=== PATIENT | male | born 1940 | race Caucasian/White ===

== ENCOUNTER → 2017-02-15 | Outpatient (CLI) | payer BC ==
[~2017-02-15] MED LIST: AMLO10CA2 PO; DUTACAP PO; MULT-506 PO; NXM/40 PO; PARO1TAB27 PO; SIMV20TA2 PO
[2017-02-15 11:14] LABS: ESTIMATED AVERAGE GLUCOSE 128 mg/dl; HA1C FLAG Normal (Normal)
[2017-02-15 11:16] LABS: ALT/SGPT 34 U/L (12-78); BLOOD UREA NITROGEN 22 mg/dl (7-18); BUN/CREATININE RATIO 20.2 (10-20); CARBON DIOXIDE 26 mmol/L (21-32); CHLORIDE 104 mmol/L (98-107); CHOLESTEROL 190 mg/dl (0-200); GLUCOSE 114 mg/dl (70-99); POTASSIUM 4.1 mmol/L (3.5-5.1); SODIUM 140 mmol/L (136-145); TRIGLYCERIDES 167 mg/dl (0-150); VERY LOW DENSITY LIPOPROT CALC 33 mg/dl
[2017-02-15 11:22] LABS: ALKALINE PHOSPHATASE 92 U/L (45-117); AST/SGOT 17 U/L (15-37); HDL CHOLESTEROL 47 mg/dl; LDL CHOLESTEROL CALCULATED 110 mg/dl; PROSTATE SPECIFIC ANTIGEN 0.591 ng/ml (0.000-4.000)
--- NOTE | 2017-02-19 14:30 | CODING QUERY MEDICAL NECESSITY ---
SUPPORTING DIAGNOSIS NEEDED A supporting diagnosis is required for the test/procedure performed on this patient in order for us to be reimbursed by the patient's insurance. Please provide a supporting diagnosis for the following test/procedure listed below next to the test name along with your signature. *If there is no additional diagnosis for this patient that would support the following test/procedure please document that below next to the test/procedure. Test(s)/Procedure(s) that require a supporting diagnosis: * PSA DIAGNOSIS: * DOS: 02/15/17 Provider Signature: Date: Thank you Micheline Gardner [facility] [employer] Once completed, please kindly fax back to [phone] For questions please call [phone]
== END | disposition home or self-care (01) ==
LOC: C.LABBC 07:55
PROVIDERS: ATTEND Internal Medicine
DX: E78.5 Hyperlipidemia, unspecified (principal); R73.01 Impaired fasting glucose; N40.1 Benign prostatic hyperplasia with lower urinary tract symptoms

== ENCOUNTER → 2018-01-07 | Outpatient (CLI) | payer BC ==
--- NOTE | 2018-01-07 08:55 | DIAGNOSTIC IMAGING REPORT ---
ABDOMEN FOR HERNIA CLINICAL HISTORY: INGUINAL HERNIA hernia TECHNIQUE: Ultrasound COMPARISON STUDY: None FINDINGS: Right inguinal fat-containing hernia. This is reducible. No evidence of bowel containment. IMPRESSION: Reducible fat containing right inguinal hernia. The above report was generated using voice recognition software. It may contain grammatical, syntax or spelling errors. Electronically signed by: Franky Armstrong M.D. 01/07/2018 8:53 AM Dictated Date/Time: 01/07/2018 8:52 AM
== END | disposition home or self-care (01) ==
LOC: C.ULTRBC 08:27
PROVIDERS: ATTEND Physician Assistant Medical
DX: K40.90 Unilateral inguinal hernia, without obstruction or gangrene, not specified as recurrent (principal)

== ENCOUNTER → 2018-02-16 | Outpatient (CLI) | payer BC ==
[~2018-02-16] MED LIST changes: -SIMV20TA2 PO
[2018-02-16 11:36] LABS: BASO % 0.2 %; BASO ABS # 0.02 K/uL (0-0.2); EOS % 1.9 %; EOS ABS # 0.16 K/uL (0-0.5); HEMATOCRIT 45.9 % (42-52); HEMOGLOBIN 15.5 g/dL (14.0-18.0); IG# 0.01 K/uL (0.00-0.02); LYMPH % 44.6 %; LYMPH ABS # 3.75 K/uL (1.2-3.4); MEAN CELL VOLUME 92.7 fL (80-100); MEAN CORPUSCULAR HEMOGLOBIN 31.3 pg (25-34); MEAN CORPUSCULAR HGB CONC 33.8 g/dl (32-36); MEAN PLATELET VOLUME 12.2 fL (7.4-10.4); MONO % 7.9 %; MONO ABS # 0.66 K/uL (0.11-0.59); NEUT % 45.3 %; PLATELET COUNT 133 K/uL (130-400); RED CELL DISTRIBUTION WIDTH CV 13.9 % (11.5-14.5); RED CELL DISTRIBUTION WIDTH SD 47.2 fL (36.4-46.3)
[2018-02-16 11:53] LABS: ALBUMIN 4.1 gm/dl (3.4-5.0); ALT/SGPT 51 U/L (12-78); BLOOD UREA NITROGEN 25 mg/dl (7-18); CALCIUM 8.8 mg/dl (8.5-10.1); CARBON DIOXIDE 26 mmol/L (21-32); CHOLESTEROL 241 mg/dl (0-200); CREATININE 1.24 mg/dl (0.60-1.40); GLUCOSE 110 mg/dl (70-99); POTASSIUM 4.3 mmol/L (3.5-5.1); SODIUM 137 mmol/L (136-145)
[2018-02-16 12:04] LABS: ALKALINE PHOSPHATASE 80 U/L (45-117); AST/SGOT 31 U/L (15-37); LDL CHOLESTEROL CALCULATED 153 mg/dl
[2018-02-16 12:20] LABS: HEMOGLOBIN A1C 6.1 % (4.5-5.6)
== END | disposition home or self-care (01) ==
LOC: C.LABBC 07:34
PROVIDERS: ATTEND Internal Medicine
DX: F40.01 Agoraphobia with panic disorder (principal); Z12.5 Encounter for screening for malignant neoplasm of prostate

== ENCOUNTER → 2018-03-01 | Day surgery (SDC) | payer BC ==
[2018-02-01 08:03] VITALS: Ht 170.2 cm; Wt 103.6 kg
[~2018-03-01] VITALS: Ht 170.2 cm; Wt 103.6 kg
[~2018-03-01] MED LIST changes: +ATROPINE SULFATE 0.1 MG/ML 5ML SYR IV PRN; +BUPIVACAINE 0.5 % 5 MG/1 ML PF 10ML VIAL ONE; +CEFAZOLIN 2000MG IV PUSH 15 ML IV SCH; +CEFAZOLIN SOD 1 GM VIAL ONE; +CEPH500C2 PO; +DEXAMETHASONE SOD INJ 4 MG/ML VIAL ONE; +EpHEDrine SULFATE INJ 50 MG/ML AMP IV PRN; +EpHEDrine SULFATE INJ 50 MG/ML AMP ONE; +FENTANYL CITRATE INJ 50 MCG/1 ML 2 ML VIAL IV PRN; +FENTANYL CITRATE INJ 50 MCG/1 ML 2 ML VIAL ONE; +GLYCOPYRROLATE INJ 0.2 MG/ML VIAL ONE; +HYDR-5688 PO; +HYDROCODONE/ACETAMIN 5/325MG TAB PO PRN; +LACTATED RINGER'S 1000ML 1,000 ML IV SCH; +LIDOCAINE HCL 2% 2 ML VIAL (20MG/ML) ONE; +MIDAZOLAM HCL 1 MG/ML 2ML VIAL ONE; +NEOSTIGMINE METHYLSULFATE 5 MG/5 ML SYR ONE; +ONDANSETRON INJ 2 MG/ML 2 ML VIAL IV PRN; +ONDANSETRON INJ 2 MG/ML 2 ML VIAL ONE; +PROPOFOL IV EMULSION 10 MG/ML 20 ML VIAL IV ONE; +SODIUM CHLORIDE 0.9% 1000ML 1,000 ML IV SCH; +SODIUM CHLORIDE 0.9% INJ 10 ML VIAL ONE
--- NOTE | 2018-03-01 13:07 | [facility] Operative Report ---
Operative Report Operative Date Mar 01, 2018. Pre-Operative Diagnosis Right Inguinal Hernia Post-Operative Diagnosis same as pre op Procedure(s) Performed Open Right Inguinal Hernia Repair Surgeon Dr Ureña Stenotypist Surgeon(s) Nedra Moreira Estimated Blood Loss 10 cc Findings very Large lipoma and indirect sac Drains None Anesthesia Type General Complication(s) none Disposition Recovery Room / PACU I attest to the content of the Intraoperative Record and any orders documented therein. Any exceptions are noted below.
--- NOTE | 2018-03-01 13:16 | Discharge Instructions-SurgCtr ---
Discharge Instructions Date of Service Mar 01, 2018. Visit Reason for Visit: Right Inguinal Hernia Discharge Discharge Diagnosis / Problem: Rt inguinal hernia Discharge Goals Goal(s): Decrease discomfort, Improve function, Improve disease control Activity Recommendations Activity Limitations: as noted below Lifting Limitations: no more than 25 pounds Exercise/Sports Limitations: until after follow-up appointment May Resume Sexual Activity: when tolerated Shower/Bathe: keep incision dry (for 2 days, then may shower over incision) Driving or Machine Use: resume 3 days after discharge Anesthesia . Post Anesthesia Instructions: If you have had General Anesthesia or IV Sedation: * Do not drive today. * Resume driving when surgeon permits. * Do not make important decisions or sign legal documents today. * Call surgeon for: 1. Temperature elevations greater than 101 degrees F. 2. Uncontrollable pain. 3. Excessive bleeding. 4. Persistent nausea and vomiting. 5. Medication intolerance (nausea, vomiting or rash). * For nausea and vomiting use only clear liquids such as: tea, soda, bouillon until nausea subsides, then gradually increase diet as tolerated. * If you have any concerns or questions, call your surgeon's office. If physician is unavailable and it is an emergency, call 911 or go to the nearest emergency room. . Instructions / Follow-Up Instructions / Follow-Up SPECIAL CARE INSTRUCTIONS: * Cover incisions and change daily for comfort/drainage. * Leave steri strips in place * avoid constipation- may use Senokot S and Milk of magnesia twice daily as directed on the package * May use ibuprofen for pain as tolerated. * Expect some swelling and bruising. Call your doctor if: * Temperature above 101 degrees * Pain not relieved by pain medicine ordered * There is increased drainage or redness from any incision * You have any unanswered questions or concerns [phone]. FOLLOW UP VISIT: If not already scheduled, please call the office for a follow-up visit. for next week- some suture removal OFFICE PHONE NUMBER: Dr. Ureña Office Diet Recommendations Home Diet: resume previous diet Procedures Procedures Performed: Open Right Inguinal Hernia Repair Pending Studies Studies pending at discharge: no Medical Emergencies . Who to Call and When: Medical Emergencies: If at any time you feel your situation is an emergency, please call 911 immediately. . Non-Emergent Contact Non-Emergency issues call your: Primary Care Provider, Surgeon . . "Provider Documentation" section prepared by Heriberto Ureña. .
--- NOTE | 2018-03-01 13:34 | OPERATIVE REPORT ---
DATE OF OPERATION: 03/01/2018 NAME OF OPERATION: Open right inguinal hernia repair. PREOPERATIVE DIAGNOSIS: Right inguinal hernia. POSTOPERATIVE DIAGNOSIS: Same with indirect sac and a very large lipoma. STAFF SURGEON: Heriberto Ureña MD RESIDENTIAL SUPPORT SPECIALIST: Alex Moreira PA-C ANESTHESIA: General anesthetic. PROCEDURE: The patient was brought in the operating room and placed on the operating table in supine position. His right lower abdomen was prepped and draped in usual fashion. Incision made parallel to the inguinal ligament, carrying dissection down identifying the external oblique fibers incising them along their length to the external ring. Cord structures were mobilized. The patient had a very large indirect hernia sac and a very large lipoma. These were dissected away and reduced. The internal ring then reinforced using a mesh plug, secured to surrounding tissue using 2-0 Ethibond suture. A large mesh patch was then placed in the floor of the canal around the cord structures secured to surrounding tissue using 2-0 Ethibond suture. The external oblique fibers were closed over the mesh around the cord structures using 2-0 Ethibond suture. The site was anesthetized using 0.5% plain Marcaine. Subcutaneous tissue reapproximated using 2-0 plain catgut suture then the skin reapproximated using 4-0 nylon suture and Steri-Strips. The patient was transferred to recovery room in stable condition. I attest to the content of the Intraoperative Record and any orders documented therein. Any exception s are noted below.
--- NOTE | 2018-03-01 14:03 | Anesthesia Progress Nt - [facility] ---
Anesthesia Post Op Note Date & Time Mar 01, 2018 at 14:03 Vital Signs Pain Intensity: 0 Vital Signs Past 12 Hours Date Time Temp Pulse Resp B/P (MAP) Pulse Ox O2 Delivery O2 Flow Rate FiO2 03/01/18 13:50 36.4 74 20 128/77 (94) 91 Room Air 03/01/18 13:41 36.3 93 Room Air 03/01/18 13:40 148/89 03/01/18 13:38 78 11 94 03/01/18 13:38 79 11 03/01/18 13:36 133/89 03/01/18 13:33 83 18 94 03/01/18 13:33 83 18 03/01/18 13:31 137/83 03/01/18 13:28 83 16 03/01/18 13:28 83 16 94 03/01/18 13:27 82 16 94 03/01/18 13:27 82 16 03/01/18 13:26 128/85 03/01/18 13:22 86 19 94 03/01/18 13:22 86 19 03/01/18 13:21 145/88 03/01/18 13:19 84 20 03/01/18 13:19 84 20 93 03/01/18 13:16 151/89 03/01/18 13:15 155/91 03/01/18 13:14 36.9 84 18 153/91 93 Mask 10 03/01/18 11:09 192/114 (140) 03/01/18 10:54 36.9 77 18 211/127 (155) 95 Room Air Notes Mental Status: alert / awake / arousable, participated in evaluation Pt Amnestic to Procedure: Yes Nausea / Vomiting: adequately controlled Pain: adequately controlled Airway Patency, RR, SpO2: stable & adequate BP & HR: stable & adequate Hydration State: stable & adequate Anesthetic Complications: no major complications apparent
[2018-03-01 14:20] VITALS: BP 156/98; PULSE 97; O2SAT 93
== END | disposition home or self-care (01) ==
LOC: X.SURG 10:36
PROVIDERS: ATTEND Surgery
DX: K40.90 Unilateral inguinal hernia, without obstruction or gangrene, not specified as recurrent (principal); I10 Essential (primary) hypertension; E78.5 Hyperlipidemia, unspecified; F40.01 Agoraphobia with panic disorder; M19.90 Unspecified osteoarthritis, unspecified site; K20.9 Esophagitis, unspecified; R73.03 Prediabetes; E03.9 Hypothyroidism, unspecified; N40.1 Benign prostatic hyperplasia with lower urinary tract symptoms; Z82.3 Family history of stroke; Z82.49 Family history of ischemic heart disease and other diseases of the circulatory system; Z79.899 Other long term (current) drug therapy